=== PATIENT | female | born 1960 | race Caucasian/White ===

== ENCOUNTER 2025-01-18 21:26 | Emergency (ER) | payer MEDICARE, OTHER, SELFPAY ==
[2025-01-18 21:30] VITALS: BP 196/105
[2025-01-18 23:40] VITALS: BP 166/91
--- NOTE | 2025-01-19 00:08 | ED.SKININJ ---
HPI-Injury
General
Chief Complaint: Bite
Source: patient
Exam Limitations: none
Time Seen by Provider: 01/18/25 23:59
History of Present Illness-Injury
Initial Injury comments:
See MDM
Phy Exam
Physical Exam
Physical Exam:
See MDM
Course
Orders/Labs/Results
Orders:
Orders
01/19/25 00:10
Cephalexin Monohydrate [Keflex] 500 mg PO NOW STA
Vital Signs
Initial and Last Documented VS:
Initial Vital Signs
Temp Pulse Resp BP Pulse Ox
98.3 F 96 20 196/105 99
01/18/25 21:30 01/18/25 21:30 01/18/25 21:30 01/18/25 21:30 01/18/25 21:30
Last Documented Vital Signs
Temp Pulse Resp BP Pulse Ox
98.3 F 96 20 166/91 99
01/18/25 21:30 01/18/25 21:30 01/18/25 21:30 01/18/25 23:40 01/19/25 00:08
MDM/Problems Addressed
Differential Diagnosis Includes:
Note:
CHIEF COMPLAINT(S)
Redness and swelling of the ankle.
HISTORY OF PRESENT ILLNESS
The patient is a 64-year-old female who presented with redness and swelling of the ankle, which she noticed starting either Saturday or Saturday. The redness and swelling were accompanied by streaking. The patient has a history of developing hives as
an allergic reaction to penicillin during childhood. It is suspected that the patient has early cellulitis, a skin infection potentially stemming from a bug bite. The patient reports that the ankle area is not itchy. The patients condition may have
been exacerbated by local bacteria penetrating a break in the skin, as discussed.
The patient expressed uncertainty about previously tolerated antibiotics but denied the use of many due to adverse reactions. The patient recalls experiencing an adverse reaction to trimethoprim-sulfamethoxazole (Bactrim). There is a consideration
between starting therapy with either cephalexin (Keflex) or doxycycline, both of which are deemed appropriate treatments. The patient prefers to take cephalexin at a dosage of 500 mg twice daily. It was also discussed that icing the affected area
would be beneficial due to the inflammation.
ALLERGIES
The patient reports an allergy to penicillin, characterized by hives.
PAST MEDICAL HISTORY
The patient mentioned a past diagnosis of gout.
MEDICATIONS
The patient will start cephalexin 500 mg twice daily for the ankle infection.
PHYSICAL EXAM
General: Well appearing and non-toxic
HEENT: protecting airway
Neck: appears supple
CV: No evidence of cyanosis
Resp: No accessory muscle use
Abd: Non-distended
Extremities: No deformities
Neuro: alert
Psych: Normal affect
Skin: Cellulitic changes to left inner ankle. Distal extremity neurovascular intact
PROBLEM LIST
Acute:
- Ankle cellulitis likely secondary to a bug bite.
PLAN
- Initiate treatment with cephalexin 500 mg two times a day.
- The patient was advised to apply ice to reduce inflammation.
- The patient was instructed to return if fever develops or the condition worsens after 24 hours.
- The patient will receive an initial dose of cephalexin in the clinic prior to discharge to ensure coverage begins promptly.
DIFFERENTIAL DIAGNOSIS
The Differential Diagnosis includes, in no particular order and is not limited to:
1. Cellulitis
2. Inflammatory response to insect bite
3. Venous stasis dermatitis
4. Allergic reaction
5. Deep vein thrombosis
6. Insect bite reaction
7. Erysipelas
8. Contact dermatitis
9. Gout flare
10. Lymphedema
Disposition:
SUMMARY OF ENCOUNTER
The patient, a 64-year-old female, presented with concerns suggestive of cellulitis, characterized by redness and swelling on her ankle, likely due to a bug bite. Despite a noted allergy to penicillin, cephalexin (Keflex) was considered appropriate
due to minimal cross-reactivity. The patient has previously tolerated cephalexin. The decision to treat was based on clinical findings supporting cellulitis, rather than a bulls-eye rash suggesting Lyme disease. The plan included starting cephalexin
therapy, with the patient receiving an initial dose administered in the emergency department.
DISPOSITION
Discharge.
ASSESSMENT
The clinical presentation is consistent with cellulitis, as opposed to a bulls-eye rash or other potential conditions.
PLAN
- Initiate treatment with cephalexin, beginning with the administration of an initial dose in the emergency department.
- Advise the patient on return precautions, including developing a fever or worsening symptoms.
- Reinforce the instructions to monitor the affected area and apply ice for inflammation.
- Discharge home with information for follow-up care if symptoms do not improve or worsen.
PATIENT EDUCATION AND COUNSELING
The patient was educated about cellulitis, its symptoms, and the purpose of the prescribed antibiotics. Instructions were provided on recognizing signs of potential complications that warrant immediate medical attention, such as the development of
fever or increased swelling and redness. The importance of medication adherence was emphasized.
FOLLOW-UP INSTRUCTIONS
The patient was instructed to return if fever develops or if the condition worsens after 24 hours.
MEDICATION RECONCILIATION
- Cephalexin 500 mg to be taken twice daily was prescribed to the patient for treatment of the ankle cellulitis.
MEDICAL DECISION MAKING
- Number and Complexity of Problems Addressed:
Chronic conditions affecting care include the patient�s history of gout. Differential diagnosis considered: cellulitis, inflammatory response to insect bite, venous stasis dermatitis, allergic reaction, deep vein thrombosis, insect bite reaction,
erysipelas, contact dermatitis, gout flare, lymphedema.
- Data:
Category 1:
No additional labs or imaging were ordered for this visit since the diagnosis was based on clinical evaluation.
Category 3:
Discussion occurred regarding the administration of cephalexin, considering its effectiveness for suspected cellulitis, despite the patients allergy to penicillin. The low risk of cross-reactivity was noted, reinforcing the decision to proceed with
this antibiotic.
-Risk:
Prescription medication was prescribed, with cephalexin being chosen due to the low cross-reactivity with penicillin.
DIAGNOSIS
- L03.115 Cellulitis of right lower limb.
*Pulse Oximetry
SaO2: 99
Oxygen Mode of Delivery: Room air
Patient hypoxic: no
*Critical Care Note
Total Time (30-74mins, 75-104mins- exclusive of procedures): Not Applicable
ED Attending Note
-
Portions of this chart may have been created with voice recognition software.� Occasional wrong word or��sound alike� substitutions may have occurred due to the inherent limitations of voice recognition software.
Discharge Plan
Departure
Patient Disposition: Home (Routine Discharge)
Date of Disposition: 01/19/25
Time of Disposition: 00:11
Patient with high blood pressure during this ER visit?: Yes
Discharge Problem:
Cellulitis
Instructions: Cellulitis (Skin Infection), Child (DC)
Prescriptions:
New
cephalexin 500 mg capsule
500 mg PO BID 7 Days Qty: 14 0RF
Referrals:
Kevyn Farley IV, DO [Family Provider, Family Practice]
Activity Restrictions/Additional Instructions:
Watch for worsening signs of infection: fever over 100.5', increasing pain, red streaks around wound, swelling, or increasing drainage of pus. If any of these happen, return to ED promptly. Make sure that you take all your antibiotics as directed
and finish your prescription even if you feel better before the bottle is empty
Interventions
Interventions:
*Risk Screen - Suicide Last Done: 01/18/25 23:42
*General Assessment Last Done: 01/18/25 21:30
*Neglect/Abuse Screening Last Done: 01/18/25 23:40
*ED- Fall Risk Assessment Last Done: 01/18/25 23:40
*ED COVID-19 Vaccine History Last Done: 01/18/25 23:40
ED-Skin Assessment Last Done: 01/18/25 23:40
Discharge Date and Time
Print Language: TRINIDADIAN
[2025-01-19] MEDS: KEFLEX 500 MG PO (00:16)
== END 2025-01-19 00:20 | disposition home or self-care (01) ==
LOC: EMR 21:26
PROVIDERS: EMERGENCY PHYSICIAN Student in an Organized Health Care Education/Training Program; FAMILY PHYSICIAN Family Medicine
DX: L03.116 Cellulitis of left lower limb (principal); M25.472 Effusion, left ankle; R03.0 Elevated blood-pressure reading, without diagnosis of hypertension; Z88.0 Allergy status to penicillin; Z88.1 Allergy status to other antibiotic agents; Z88.2 Allergy status to sulfonamides
CPT/HCPCS: 99283